=== PATIENT | male | born 1955 | race Caucasian/White ===

== ENCOUNTER → 2019-07-13 | Day surgery (SDC) | payer OTHER ==
[2019-07-10 12:29] LABS: BASOPHILS % 0.6 % (0.0-1.0); EOSINOPHILS # (AUTO) 0.1 (0.0-0.4); EOSINOPHILS % 1.5 % (0.0-6.0); HEMATOCRIT 39.3 % (38.2-49.6); HEMOGLOBIN 13.6 g/dL (14.0-18.0); LYMPHOCYTES # (AUTO) 1.3 (1.0-3.2); LYMPHOCYTES % 25.2 % (18.0-39.1); MEAN CORPUSCULAR HEMOGLOBIN 31.7 pg (28-32); MEAN CORPUSCULAR HGB CONC 34.6 g/dL (31-35); MEAN CORPUSCULAR VOLUME 91.6 fL (81-99); MONOCYTES # (AUTO) 0.6 (0.2-0.8); MONOCYTES % 11.3 % (4.4-11.3); NEUTROPHILS # (AUTO) 3.2 (2.1-6.9); NEUTROPHILS % 61.2 % (38.7-80.0); PLATELET COUNT 207 x10e3/uL (140-360); RED BLOOD COUNT 4.29 x10e6/uL (4.3-5.7); RED CELL DISTRIBUTION WIDTH 13.8 % (11.7-14.4)
[2019-07-10 12:44] LABS: ANION GAP 14.2 mmol/L (8-16); BLOOD UREA NITROGEN 12 mg/dL (7-26); BUN/CREATININE RATIO 15 (6-25); CALCIUM 8.7 mg/dL (8.4-10.2); CARBON DIOXIDE 22 mmol/L (22-29); CHLORIDE 100 mmol/L (98-107); CREATININE, SERUM 0.82 mg/dL (0.72-1.25); EST GLOMERULAR FILTRATION RATE > 60 ML/MIN (60-); GLUCOSE 94 mg/dL (74-118); POTASSIUM 4.2 mmol/L (3.5-5.1); SODIUM 132 mmol/L (136-145)
--- NOTE | 2019-07-10 12:55 | Diagnostic Imaging Report ---
X-ray chest PA and lateral Comparison: None History: Preop Findings: Central airways unremarkable. Heart size normal. Mediastinal contours unremarkable. No pleural effusion. No pneumothorax. Hyperinflated lungs with low flat diaphragms suggestive of COPD/emphysema. 10 mm nodule in the posterior costophrenic recess unsure whether it is on the right or the left side as it is seen on the on the lateral view. Comparison with prior imaging or a chest CT may be considered given the findings of COPD. Visualized skeletal structures and upper abdomen unremarkable. Impression: Possible COPD/emphysema. Basilar lung nodule as described with recommendations as above. Signed by: Edwin Jewell MD on 07/10/2019 12:52 PM
[~2019-07-13] MED LIST: BUPIVACAINE 0.25%/EPI 30ML SDV INJ ONE; LIDOCAINE HCL 1% LOCAL INJ 20 ML VIAL ONE
[2019-07-13 11:55] VITALS: BP 128/91
--- NOTE | 2019-07-13 16:06 | Operative Report ---
DATE OF PROCEDURE: 07/13/2019 SURGEON: Moris Mcconnell MD PREOPERATIVE DIAGNOSIS: Right inguinal hernia. POSTOPERATIVE DIAGNOSIS: Right inguinal hernia. OPERATION PERFORMED: Repair of right inguinal hernia with large Prolene hernia system. [employer]: DELICIA Ruby. ANESTHESIA: Local 1% lidocaine and 0.25% Marcaine, and MAC. COMPLICATIONS: None. ESTIMATED BLOOD LOSS: Minimal. DESCRIPTION OF PROCEDURE: With the patient lying in bed in the supine position under good IV sedation, the abdomen was prepped with Betadine solution and draped in the usual manner. Standard ilioinguinal block was performed with 0.25% Marcaine and 1% lidocaine with epinephrine, roughly the entire procedure was then with about 35 mL of the mixture. An incision was then made in the right groin, carried down through the subcutaneous tissue down to the external oblique aponeurosis. External oblique was opened along the length of its fibers and the external inguinal ring was opened. The cord was then mobilized and retracted. Contained within the cord was a small lipoma of the cord, which was from the cord structures, ligated with 2-0 Vicryl and divided, there was no indirect hernia sac present. There was, however, pretty much a complete blowout of the direct space from a direct hernia. The preperitoneal space was then entered right through the internal ring and a pocket was created without any difficulty. A large Prolene hernia system was then placed in the preperitoneal space and the underlay was deployed without any problems. The transversalis fascia was then tightened to close the blown out floor it with a running suture of 2-0 Vicryl. The overlay patch was then placed over the floor and sutured to the conjoined tendon and the inguinal ligament using interrupted sutures of 2-0 Vicryl. The mesh was split inferolaterally to allow for passage of the cord. The whole area was thoroughly irrigated. Perfect hemostasis was ascertained. The external oblique aponeurosis was then closed with a running suture of 2-0 Vicryl. The subcutaneous tissue was approximated with 3-0 plain and the skin was closed with clips. A dressing was applied. The sponge, lap, and needle counts were correct. The patient tolerated the procedure well and returned to the recovery room in stable condition. MD SHERICE Vera/ROSEMARIE /[id number]
== END | disposition home or self-care (01) ==
LOC: OR 06:34
PROVIDERS: ATTEND Surgery
DX: K40.90 Unilateral inguinal hernia, without obstruction or gangrene, not specified as recurrent (principal); D17.6 Benign lipomatous neoplasm of spermatic cord; Z01.810 Encounter for preprocedural cardiovascular examination; Z01.812 Encounter for preprocedural laboratory examination; Z01.818 Encounter for other preprocedural examination; Z11.59 Encounter for screening for other viral diseases
CPT/HCPCS: 36415; 49505; 71046; 80048; 85025; 87635; 93005; C1781; J2001